=== PATIENT | female | born 1975 | race Caucasian/White ===

== ENCOUNTER 2018-05-30 20:04 | Emergency (ER) | payer OTHER, SELFPAY ==
[2018-05-30 20:12] VITALS: BP 142/66; PULSE 75; RESP 16; TEMP 36.9; O2SAT 98; BMI 21.8
--- NOTE | 2018-05-30 20:16 | DI.CT.S_ITS ---
PROCEDURE: CT HEAD/BRAIN WO CON INDICATIONS: severe R sided WALL, recent neurosurg TECHNIQUE: Noncontrast 4.5 mm thick angled axial sections acquired from the foramen magnum to the vertex, with coronal and sagittal reformats. For radiation dose reduction, the following was used: automated exposure control, adjustment of mA and/or kV according to patient size. COMPARISON: None. FINDINGS: Image quality: Excellent. CSF spaces: Basal cisterns are patent. Small low density extra-axial fluid collection noted along the left lateral margin of the left cerebellar hemisphere. Ventricles are normal in size and shape. Brain: No midline shift. No intracranial masses or hemorrhage. Jordan-white matter interface is normal. Skull and face: Postsurgical changes compatible with left occipital craniotomy noted. The visualized facial bones are intact, without suspicious lesions. Sinuses: Visualized sinuses and mastoids are clear. IMPRESSION: 1. Small extra-axial fluid collection or tracking along the lateral margin of the left cerebellar hemisphere likely related to recent surgery. 2. No acute intracranial hemorrhage. 3. Postsurgical changes. Dictated by: Juany Maria MD, PhD on 05/30/2018 at 20:57 Approved by: Juany Maria MD, PhD on 05/30/2018 at 21:02
[2018-05-30] MEDS: ACETAMINOPHEN 325 MG TABLET 650 MG PO (20:19)
[2018-05-30] MEDS: ONDANSETRON 4 MG/2 ML INJ IV (20:19)
[2018-05-30] MEDS: SODIUM CHLORIDE 0.9% 1,000 ML 150 ML IV (20:21)
[2018-05-30 20:28] LABS: Add Manual Diff / Slide Review NO; Basophils Percent Auto 0.2 % (0-2); Eosinophils Percent Auto 2.1 % (2-4); Hematocrit 37.4 % (36-46); Hemoglobin 12.7 g/dL (12.0-16.0); Lymphocytes Percent Auto 31.2 % (25-40); Mean Corpuscular Hemoglobin 31.5 PG (26-34); Mean Corpuscular Volume 92.5 fL (80-100); Monocytes Percent Auto 5.3 % (3-14); Neutrophils Absolute Auto 5400 /uL (3000-5900); Neutrophils Percent Auto 61.2 % (50-75); Platelet Count 275 X10^3/uL (150-400); Red Blood Cell Count 4.04 X10^6/uL (4.0-5.2); Red Cell Distribution Width 12.8 % (11.6-14.8); White Blood Cell Count 8.8 X10^3/uL (4.5-11.0)
--- NOTE | 2018-05-30 20:29 | ED_ITS ---
HPI - Headache General Chief Complaint: Headache Stated Complaint: HAD BRAIN SURGERY VOMITING HEAD PAIN RIGHT SIDE Time Seen by Provider: 05/30/18 20:05 Source: patient and family Mode of arrival: ambulatory Limitations: no limitations History of Present Illness HPI Narrative: 43-year-old female, nonsmoker presents with her for evaluation of a headache is rapidly worsening over the course of the day. She had a neuro vascular surgery Friday for the treatment of a facial tic. She had had a low-grade headache since the surgery, she was discharged on . Over the course of the day her headache has been worsening and became rather significant vital hour prior to arrival and caused her to vomit once. She denies neurologic symptoms such is blurred vision, trouble with speech or unilateral weakness. Surgical procedure was [place]. Headache is quite intense and on the right frontal portion of her head. It is worse with bright lights, loud noise and exertion and improves with rest and being in a dark room. MD Complaint: headache Onset (ago): hour(s) Onset description: gradual Location: right Related Data Previous Rx's Medication Instructions Recorded ondansetron 4 mg PO QID PRN #10 tab 05/30/18 prednisone 20 mg PO BID 4 Days #8 tab 05/30/18 Allergies Allergy/AdvReac Type Severity Reaction Status Date / Time No Known Drug Allergies Allergy Verified 05/30/18 20:12 Review of Systems Review of Systems All systems reviewed & are unremarkable except as noted in HPI and below Constitutional Denies chills, Denies fever(s), Reports headache(s), Denies lethargy and Denies weakness Eyes Denies change in vision, Denies eye discharge, Denies irritation and Denies loss of vision ENT Ears, Nose, Mouth, and Throat: Denies change in voice, Reports headache(s), Denies neck pain and Denies sore throat Cardiovascular Denies chest pain, Denies irregular heart rhythm, Denies lightheadedness, Denies palpitations, Denies dyspnea, Denies dyspnea on exertion and Denies orthopnea Respiratory Denies cough, Denies dyspnea, Denies dyspnea on exertion and Denies wheezing Gastrointestinal Gastrointestinal: Denies abdominal pain, Denies change in bowel habits, Denies diarrhea, Reports nausea and Reports vomiting Genitourinary Denies hematuria, Denies flank pain, Denies urinary incontinence and Denies urinary urgency Musculoskeletal Denies neck pain Integumentary/Breasts Denies pruritus, Denies erythema, Denies rash and Denies wounds Neurologic Denies confusion, Reports headache(s), Denies loss of vision and Denies weakness Psychiatric Denies anxiety, Denies confusion, Denies depression, Denies homicidal ideation and Denies suicidal ideation Endocrine Denies palpitations Hematologic/Lymphatic Denies easy bruising Allergic/Immunologic Denies wheezing PFSH Social History Smoking Status: Former smoker Exam Narrative Exam Narrative: 43-year-old female, obviously uncomfortable, eyes closed with hand rubbing right side orthodoxy Initial Vital Signs Initial Vital Signs: Vital Signs Temperature 98.4 F 05/30/18 20:12 Pulse Rate 75 05/30/18 20:12 Respiratory Rate 16 05/30/18 20:12 Blood Pressure 142/66 H 05/30/18 20:12 Pulse Oximetry 98 05/30/18 20:12 Const General: cooperative and well developed Nutritional Appearance: well nourished Orientation: alert, awake, oriented x3 and not confused HENMT Head: normocephalic, atraumatic and other (incision C/D/I) Ears: external ears normal and TM's normal bilaterally Nose: external nose normal and No nasal discharge Face and sinus: sinuses nontender, face symmetric, no sinus tenderness and No dry mucous membranes Mouth: oral mucosae normal and moist mucous membranes Teeth and gingiva: dentition normal Throat: tonsils normal and uvula midline Eyes General: appearance normal, both eyes and all related structures Eyelids: eyelids normal Conjunctivae: conjunctivae normal Sclera: sclerae normal Pupils: PERRL EOM: EOM intact bilaterally Neck Neck: normal visual inspection, full ROM and no meningeal signs Chest Chest: normal inspection of the chest Resp Effort & Inspection: normal respiratory effort, able to speak in complete sentences, no respiratory distress and no use of accessory muscles Auscultation: clear to auscultation bilaterally, no rales, no rhonchi and no wheezes Cardio Rate: regular rate Rhythm: regular rhythm Heart Sounds: no click, no gallops, no murmurs and no rubs Pulses: normal peripheral pulses GI Inspection: non-distended Palpation: soft, no hepatosplenomegaly, No guarding, No pulsatile mass and No tender Auscultation: normal bowel sounds Back/Spine/Pelvis Back: No CVA tenderness Cervical Spine: cervical ROM normal and No pain with cervical ROM Thoracic/Lumbar Spine: thoracic and lumbar spine normal to inspection Skin General: no rashes or lesions noted, No jaundice and No petechiae Extrem General: full ROM, no clubbing, cyanosis or edema, no pedal edema and no calf tenderness Course Orders Ordered: ED Orders 05/30/18 20:16 CT head/brain wo con Stat 05/30/18 20:17 Basic Metabolic Panel Stat Complete Blood Count AUTO DIFF Stat Discontinued Medications Acetaminophen (Tylenol) 650 mg PO NOW ONE Stop: 05/30/18 20:17 Last Admin: 05/30/18 20:19 Dose: 650 mg Dexamethasone (Decadron) 10 mg IV NOW ONE Stop: 05/30/18 21:30 Last Admin: 05/30/18 21:41 Dose: 10 mg Diphenhydramine HCl (Benadryl) 25 mg IV NOW ONE Stop: 05/30/18 21:30 Last Admin: 05/30/18 21:41 Dose: 25 mg Sodium Chloride (Normal Saline 0.9%) 1,000 mls @ 150 mls/hr IV BOLUS ONE Stop: 05/31/18 02:59 Last Infusion: 05/30/18 22:34 Dose: 0 mls/hr Admin: 05/30/18 20:21 Dose: 150 mls/hr Ketorolac Tromethamine (Toradol) 15 mg IV NOW ONE Stop: 05/30/18 21:30 Last Admin: 05/30/18 21:41 Dose: 15 mg Metoclopramide HCl (Reglan) 10 mg IV NOW ONE Stop: 05/30/18 21:30 Last Admin: 05/30/18 21:41 Dose: 10 mg Ondansetron HCl (Zofran) 4 mg IV Q4HR PRN PRN Reason: Nausea And Vomiting Last Admin: 05/30/18 20:19 Dose: 4 mg Reevaluation(s) Reevaluation #1: near complete resolution of symptoms after above stated therapies Consultations Consultation #1: records from [place] ordered Consultation #2: Neurosurg PA from [place] consulted, we've discussed case including history, physical, and lab/imaging findings. They suggest this is rather common and recommend treatment with typical migraine approach including steroids Vital Signs - 8 hr 05/30/18 20:12 05/30/18 21:15 05/30/18 22:00 Temperature 98.4 F Pulse Rate 75 65 70 Respiratory Rate 16 Blood Pressure 142/66 H Blood Pressure [Left Arm] 117/53 L 107/63 Pulse Oximetry 98 98 100 MDM - Headache Medical Records Attestation: I reviewed the patient's medical records. Lab Data Attestation: I reviewed the patient's lab results. Result diagrams: 05/30/18 20:17 05/30/18 20:17 Lab Results 05/30/18 05/30/18 Range/Units 20:17 20:17 WBC 8.8 (4.5-11.0) X10^3/uL RBC 4.04 (4.0-5.2) X10^6/uL Hgb 12.7 (12.0-16.0) g/dL Hct 37.4 (36-46) % MCV 92.5 (80-100) fL MCH 31.5 (26-34) PG MCHC 34.0 (30-36) % RDW 12.8 (11.6-14.8) % Plt Count 275 (150-400) X10^3/uL Neut % (Auto) 61.2 (50-75) % Lymph % (Auto) 31.2 (25-40) % Lipscomb % (Auto) 5.3 (3-14) % Eos % (Auto) 2.1 (2-4) % Baso % (Auto) 0.2 (0-2) % Neut # (Auto) 5400 (6045-3315) /uL Sodium 139 (137-145) mmol/L Potassium 3.9 (3.4-5.1) mmol/L Chloride 100 (98-107) mmol/L Carbon Dioxide 29 (22-32) mmol/L BUN 12 (7-17) mg/dL Creatinine 0.50 L (0.52-1.04) mg/dL Estimated GFR > 60.0 (>60) mL/min BUN/Creatinine Ratio 24.0 H (6-22) Glucose 111 H (70-100) mg/dL Calcium 8.7 (8.4-10.2) mg/dL Imaging Data CT scan - head: Radiologist's impression: [address] [address] [address] Scan Report Signed Patient: Jennifer Pugh [facility]#: [id number] : 1975Acct:[id number] Age/Sex: 43 / FDate of Service: 05/30/18 Loc: ED Accession Number: [id number] Procedure: CT head/brain wo con Ordering Provider: Mg Shultz D.O. PROCEDURE: CT HEAD/BRAIN WO CON INDICATIONS: severe R sided WALL, recent neurosurg TECHNIQUE: Noncontrast 4.5 mm thick angled axial sections acquired from the foramen magnum to the vertex, with coronal and sagittal reformats. For radiation dose reduction, the following was used: automated exposure control, adjustment of mA and/or kV according to patient size. COMPARISON: None. FINDINGS: Image quality: Excellent. CSF spaces: Basal cisterns are patent. Small low density extra-axial fluid collection noted along the left lateral margin of the left cerebellar hemisphere. Ventricles are normal in size and shape. Brain: No midline shift. No intracranial masses or hemorrhage. Jordan-white matter interface is normal. Skull and face: Postsurgical changes compatible with left occipital craniotomy noted. The visualized facial bones are intact, without suspicious lesions. Sinuses: Visualized sinuses and mastoids are clear. IMPRESSION: 1. Small extra-axial fluid collection or tracking along the lateral margin of the left cerebellar hemisphere likely related to recent surgery. 2. No acute intracranial hemorrhage. 3. Postsurgical changes. Dictated by: Juany Maria MD, PhD on 05/30/2018 at 20:57 Approved by: Juany Maria MD, PhD on 05/30/2018 at 21:02 [facility] Narrative Medical decision making narrative: patient with recent neurosurgical procedure presents with severe WALL, N/V. CT unremarkable. Consult with Neurosurg, suggestion that this is common sequelae. Patient felt much much better after above stated medications. Will follow up as planned. Return precautions given and patient/ understand and agree with these. Discharge Plan Departure Patient Disposition: Home Clinical Impression: Headache Discharge Date/Time: 05/30/18 22:38 Interventions: ED Discharge Assessment Last Done: 05/30/18 22:37 Instructions: DI for Headache Activity Restrictions/Additional Instructions: *You have been diagnosed with [ post surgical headache ] *What to do: *Take medications as directed *Follow up with your primary care provider in 2-3 days, call for an appointment. Let them know you were seen in the Emergency Department and that we ask that you be seen in follow up *Return to ER if you should have any new, worsening or concerning symptoms Prescriptions: New prednisone 20 mg tablet 20 mg PO BID 4 Days Qty: 8 RF: 0 ondansetron 4 mg tablet,disintegrating 4 mg PO QID PRN (Reason: nausea and vomiting) Qty: 10 RF: 0
[2018-05-30 20:51] LABS: Blood Urea Nitrogen 12 mg/dL (7-17); Calcium 8.7 mg/dL (8.4-10.2); Carbon Dioxide 29 mmol/L (22-32); Chloride 100 mmol/L (98-107); Estimated Glomerular Filt Rate > 60.0 mL/min (>60); Glucose 111 mg/dL (70-100); HEMOLYSIS 28 (0-50); Potassium 3.9 mmol/L (3.4-5.1); Sodium 139 mmol/L (137-145)
[2018-05-30 21:15] VITALS: BP 117/53; PULSE 65; O2SAT 98
[2018-05-30] MEDS: KETOROLAC 60 MG/2 ML VIAL 15 MG IV (21:41)
[2018-05-30] MEDS: DEXAMETHASONE 10 MG/ML VIAL IV (21:41)
[2018-05-30] MEDS: METOCLOPRAMIDE 10 MG/2 ML INJ IV (21:41)
[2018-05-30] MEDS: diphenhydrAMINE 50 MG/ML VIAL 25 MG IV (21:41)
[2018-05-30 22:00] VITALS: BP 107/63; PULSE 70; O2SAT 100
== END 2018-05-30 22:38 | disposition home or self-care (01) ==
PROVIDERS: Emergency Provider Emergency Medicine
DX: R51 Headache (principal); Z98.890 Other specified postprocedural states
CPT/HCPCS: 36591; 70450; 80048; 85025; 96361; 96374; 96375; 99283; 99284; J1100; J1200; J1885; J2405; J2765

== ENCOUNTER 2018-09-10 10:52 | Emergency (ER) | payer OTHER, SELFPAY ==
[2018-09-10] VITALS (11 sets, daily range): BP systolic 98–126; BP diastolic 54–76; PULSE 62–94; RESP 15–18; O2SAT 98–100; BMI 23.0
--- NOTE | 2018-09-10 11:04 | ED.GENADULT ---
HPI - General Adult General Chief complaint: Neuro Symptoms/Deficit Stated complaint: VISION/MEMORY LOSS Time Seen by Provider: 09/10/18 11:04 Source: patient and family Mode of arrival: ambulatory Limitations: no limitations History of Present Illness HPI narrative: Patient is a 43-year-old female here for evaluation of vision loss in her right eye and also problems thinking of words. Approximately 1-1.5 hours prior to arrival here in the emergency department she states she was at her normal state health at work. She states she started to notice that the peripheral vision in her right eye started out as a changes to include color change. She states that eventually moved to a point to where she could only see black out of the right side of her right eye. It appeared to be monocular. She also states that at the time she was trying to text her and could not think of how to spell the word ?vision ?. 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 Has not had any issues with that since the surgery. Upon my evaluation here in the ER the patient reports a complete resolution of all of her symptoms. She does not have a history of seizures. Related Data Home Medications Medication Instructions Recorded Confirmed Vitamin C 1 tab PO DAILY 09/10/18 09/10/18 ibuprofen 1 dose PO PRN PRN 09/10/18 09/10/18 Allergies Allergy/AdvReac Type Severity Reaction Status Date / Time No Known Drug Allergies Allergy Verified 09/10/18 11:05 Review of Systems Constitutional Denies fever(s), Denies frequent falls, Reports headache(s) and Denies weakness Eyes Denies blurry vision, Reports change in vision, Denies diplopia, Reports loss of peripheral vision and Reports loss of vision ENT Ears, Nose, Mouth, and Throat: Denies vertigo, Denies dizziness, Denies ear discharge, Reports headache(s) and Denies disequilibrium Cardiovascular Denies chest pain, Denies edema, Denies palpitations and Denies dyspnea Respiratory Denies dyspnea and Denies wheezing Gastrointestinal Gastrointestinal: Denies abdominal pain, Denies nausea and Denies vomiting Musculoskeletal Denies abnormal gait, Denies myalgias, Denies arthralgias and Denies tingling Integumentary/Breasts Denies lesions and Denies rash Neurologic Denies abnormal gait, Denies behavioral changes, Reports confusion, Denies vertigo, Denies dizziness, Denies frequent falls, Reports headache(s), Reports loss of vision, Reports memory loss, Denies convulsions, Denies seizure-like activity, Denies sensory deficit, Denies tingling, Denies paresthesias, Denies disequilibrium and Denies weakness Psychiatric Denies behavioral changes, Reports confusion and Reports memory loss Endocrine Denies palpitations Hematologic/Lymphatic Denies easy bleeding and Denies easy bruising Allergic/Immunologic Denies wheezing PFSH Medical History Healthy adult (Acute) Social History Smoking Status: Former smoker Social History Smoking Status: Former smoker Exam Initial Vital Signs Initial Vital Signs: Vital Signs Pulse Rate 71 09/10/18 11:05 Respiratory Rate 15 09/10/18 11:05 Blood Pressure 119/69 09/10/18 11:05 Pulse Oximetry 100 09/10/18 11:05 Const General: cooperative, healthy appearing, comfortable, well developed, well groomed and No acute distress Orientation: alert, awake and oriented x3 HENMT Head: normal to inspection and normocephalic Nose: external nose normal Eyes General: appearance normal, both eyes and all related structures Alignment and Position: alignment normal Eyelids: eyelids normal Conjunctivae: conjunctivae normal Pupils: PERRL EOM: EOM intact bilaterally Resp Effort & Inspection: normal respiratory effort Auscultation: clear to auscultation bilaterally Cardio Rate: regular rate Rhythm: regular rhythm Pulses: radial pulses present GI Inspection: non-distended Palpation: soft, No firm and No tender Skin Lesions: no lesions Neuro General: alert, awake and oriented x3 Cranial Nerves: CN's II-XI intact bilaterally Cognition: normal cognition Speech: speech normal Gait: normal gait Motor: muscle tone normal throughout Sensory Exam: no sensory deficits noted Coordination: iftgxb-ky-[id number] test normal and capz-ay-ltur test normal Extrem General: normal to inspection, capillary refill normal and No edema Psych Appearance: grossly normal and well kempt Scores ABCD2 Age >= 60 years: no Initial BP. Either SBP >= 140 or DBP >= 90.: no Clinical features of the TIA: other symptoms Duration of symptoms: 10-59 minutes History of diabetes: no ABCD2 Score: 1 GCS Darius coma scale eye opening: Spontaneous [place]arius coma scale verbal response: Orientated [place] coma scale motor response: Obey commands [place] coma scale total score: 15 NIH Stroke Scale Level of Conciousness: Alert, keenly responsive Ask month/age: Answers both questions correctly. Open/close eyes, close hand: Performs both tasks correctly Best gaze horizontal: Normal Visual torres: No visual loss Facial palsy: Normal symetrical movement Left arm drift: No drift for full 10 sec Right arm drift: No drift for full 10 sec Left leg drift: No drift for full 10 sec Right leg drift: No drift for full 10 sec Limb ataxia: Absent Sensory on face/arms/legs: Normal, no sensory loss Best language: No aphasia, normal Dysarthria: Normal Extinction or inattention: No abnormality Total NIH Stroke scale score: 0 Course Orders Ordered: ED Orders 09/10/18 11:15 Basic Metabolic Panel Stat Complete Blood Count AUTO DIFF Stat Partial Thromboplastin Time Stat Prothrombin Time INR Stat 09/10/18 11:16 CT head/brain wo con Stat 09/10/18 12:13 MR stroke Stat Vital Signs - 8 hr 09/10/18 11:05 09/10/18 11:45 09/10/18 11:57 Pulse Rate 71 68 62 Respiratory Rate 15 18 18 Blood Pressure 119/69 Blood Pressure [Left Arm] 103/72 103/72 Pulse Oximetry 100 100 99 09/10/18 12:05 09/10/18 12:30 09/10/18 13:08 Pulse Rate 69 67 65 Respiratory Rate 16 16 15 Blood Pressure Blood Pressure [Left Arm] 104/61 114/62 98/59 L Pulse Oximetry 100 98 98 09/10/18 13:30 09/10/18 14:00 09/10/18 14:35 Pulse Rate 65 66 80 Respiratory Rate 16 16 17 Blood Pressure Blood Pressure [Left Arm] 100/54 L 98/58 L 105/76 Pulse Oximetry 98 99 98 09/10/18 15:51 Pulse Rate 75 Respiratory Rate 18 Blood Pressure Blood Pressure [Left Arm] 115/68 Pulse Oximetry 100 Medical Decision Making Lab Data Lab results reviewed: Yes I reviewed the patient's lab results. Result diagrams: 09/10/18 11:15 09/10/18 11:15 Lab Results 09/10/18 09/10/18 09/10/18 Range/Units 11:15 11:15 11:15 WBC 6.9 (4.5-11.0) X10^3/uL RBC 3.98 L (4.0-5.2) X10^6/uL Hgb 12.6 (12.0-16.0) g/dL Hct 37.0 (36-46) % MCV 93.0 (80-100) fL MCH 31.6 (26-34) PG MCHC 34.0 (30-36) % RDW 13.0 (11.6-14.8) % Plt Count 248 (150-400) X10^3/uL Neut % (Auto) 66.4 (50-75) % Lymph % (Auto) 27.6 (25-40) % [place] % (Auto) 4.6 (3-14) % Eos % (Auto) 1.1 L (2-4) % Baso % (Auto) 0.3 (0-2) % Neut # (Auto) 4600 (3887-3963) /uL Lymph # (Auto) 1900 (9174-9126) /uL [place] # (Auto) 300 (0-900) /uL Eos # (Auto) 100 (0-450) /uL Baso # (Auto) 0 (0-100) /uL PT 11.7 (10.1-12.7) SECONDS INR 1.0 (0.9-1.3) APTT 30 (26.4-36.2) SECONDS Sodium 140 (137-145) mmol/L Potassium 3.6 (3.4-5.1) mmol/L Chloride 102 (98-107) mmol/L Carbon Dioxide 27 (22-32) mmol/L BUN 13 (7-17) mg/dL Creatinine 0.60 (0.52-1.04) mg/dL Estimated GFR > 60.0 (>60) mL/min BUN/Creatinine Ratio 21.7 (6-22) Glucose 85 (70-100) mg/dL Calcium 8.9 (8.4-10.2) mg/dL Imaging Data CT scan - head: Radiologist's impression: [address] [address] [address] Scan Report Signed Patient: Jennifer Pugh [facility]#: [id number] : 1975Acct:[id number] Age/Sex: 43 / FDate of Service: 09/10/18 Loc: ED Accession Number: [id number] Procedure: CT head/brain wo con Ordering Provider: Michael Davis D.O. PROCEDURE: CT HEAD/BRAIN WO CON INDICATIONS: Right eye vision loss and memory issues TECHNIQUE: Noncontrast 4.5 mm thick angled axial sections acquired from the foramen magnum to the vertex, with coronal and sagittal reformats. For radiation dose reduction, the following was used: automated exposure control, adjustment of mA and/or kV according to patient size. COMPARISON: [facility], CT, CT HEAD/BRAIN WO CON, 05/30/2018, 20:37. FINDINGS: Image quality: Excellent. CSF spaces: Basal cisterns are patent. No extra-axial fluid collections. Ventricles are normal in size and shape. Brain: No midline shift. No intracranial masses or hemorrhage. [place]-white matter interface is normal. Skull and face: Calvarium and visualized facial bones are intact, without suspicious lesions. Sinuses: Visualized sinuses and mastoids are clear. IMPRESSION: No acute intracranial abnormality. Dictated by: Lavelle Lebron M.D. on 09/10/2018 at 11:28 Approved by: Lavelle Lebron M.D. on 09/10/2018 at 11:29 MRI - head: Radiologist's impression: Patient: Jennifer Pugh [facility]#: [id number] : 1975Acct:[id number] Age/Sex: 43 / FDate of Service: 09/10/18 Loc: ED Accession Number: [id number] Procedure: MR stroke Ordering Provider: Michael Davis D.O. PROCEDURE: MR STROKE Pre- and post-contrast brain MRI, non-contrast brain MR angiogram, pre- and postcontrast neck MR angiogram INDICATIONS: Right sided vision loss and word-finding issues earlier today TECHNIQUE: Brain: Noncontrast axial T1 spin echo, axial T2 fast spin echo, sagittal and axial FLAIR, coronal T2 fast spin echo, axial gradient echo, axial diffusion and ADC through the brain. After the administration of contrast, axial 3D VIBE of the cranial vasculature and brain. Brain MRA: Non-contrast 3-D time of flight MR angiogram, with multiple ymmyggd-mndrrosxk-qsowcecerg (MIP) reformats performed. Neck MRA: Axial and sagittal TruFISP through the neck. Coronal dynamic MR angiogram during administration of contrast in the arterial and venous phases, with 3-dimenstional zvwktwz-tboqtitkz-mtaoxhuirx (MIP) reformats constructed from subtraction images. COMPARISON: [facility], CT, CT HEAD/BRAIN WO CON, 09/10/2018, 11:15. FINDINGS: Image quality: Excellent. BRAIN: CSF spaces: Ventricles are normal in size and shape. Basal cisterns are patent. No extra-axial fluid collections. Brain: No intracranial bleeds or mass effects. Jordan-white matter interface is normal. Diffusion weighted images show no acute ischemic insults. Brainstem appears normal. Normal intravascular flow voids are present. No abnormal intracranial enhancement. Skull and face: Calvarial marrow signal is normal. Orbits appear normal. Sinuses: Sinuses and mastoids are clear. BRAIN MR ANGIOGRAM: Anterior circulation: Intracranial internal carotid arteries are normal in size and enhancement. The flow within the paired anterior cerebral arteries is normal and symmetric. The flow within the middle cerebral arteries is normal and symmetric. The anterior communicating artery is seen. No stenoses, occlusions, or aneurysms. Posterior circulation: The visualized portions of the vertebral arteries demonstrate normal caliber, and join to form a normal appearing basilar artery. The flow within the posterior cerebral arteries is normal and symmetric. No stenoses, occlusions, or aneurysms. NECK MR ANGIOGRAM: Carotids: Great vessels demonstrate a conventional anatomy as they arise from the aortic arch. The origins of the common carotid arteries appear patent. The calibers and courses of both common carotid arteries are normal. The bifurcation regions appear normal bilaterally. The internal carotid arteries demonstrate normal course and caliber. Posterior circulation: The origins of the vertebral arteries appear patent. More superior portions of both vertebral arteries demonstrate normal course and caliber, and join to form a normal appearing basilar artery. Miscellaneous: Subclavian arteries appear patent. Pre-contrast images through the neck show no soft tissue abnormalities. IMPRESSION: BRAIN MRI: 1. No acute intracranial abnormality. No recent infarct. BRAIN MR ANGIOGRAM: Negative cerebral MR angiography. NECK MR ANGIOGRAM: 1. No internal carotid artery stenosis bilaterally. 2. Patent bilateral vertebral arteries. Dictated by: Lavelle Lebron M.D. on 09/10/2018 at 15:44 Approved by: Lavelle Lebron M.D. on 09/10/2018 at 15:47 MDM Narrative Medical decision making narrative: Patient has been asymptomatic since coming into the emergency department. Had a score was 0. CT scan the head is unremarkable. MRI of the head stroke protocol was unremarkable. Labs are unremarkable. Low suspicion for CVA. ABCD2 score of 1. Her symptoms could potentially been caused by an atypical migraine. Could also be a variant of a seizure. Will hold on further workup for now. Will have the patient contact her primary doctor to discuss further evaluation potentially by Neurology and also an EEG. Patient was given return precautions. She expressed understanding and agreement with plan. Discharge Plan Departure Patient Disposition: Home Clinical Impression: Vision changes, Dysarthria Instructions: DI for Dysarthria Activity Restrictions/Additional Instructions: I recommend you contact her primary care doctor's office for follow-up to discuss the indications for a referral to see Neurology. Return to the emergency department for any new or worsening symptoms Prescriptions: No Action ibuprofen 200 mg Tablet 1 dose PO PRN PRN (Reason: pain or headache) RF: 0 Vitamin C 1 tab PO DAILY RF: 0
--- NOTE | 2018-09-10 11:16 | DI.CT.S_ITS ---
PROCEDURE: CT HEAD/BRAIN WO CON INDICATIONS: Right eye vision loss and memory issues TECHNIQUE: Noncontrast 4.5 mm thick angled axial sections acquired from the foramen magnum to the vertex, with coronal and sagittal reformats. For radiation dose reduction, the following was used: automated exposure control, adjustment of mA and/or kV according to patient size. COMPARISON: [facility], CT, CT HEAD/BRAIN WO CON, 05/30/2018, 20:37. FINDINGS: Image quality: Excellent. CSF spaces: Basal cisterns are patent. No extra-axial fluid collections. Ventricles are normal in size and shape. Brain: No midline shift. No intracranial masses or hemorrhage. Jordan-white matter interface is normal. Skull and face: Calvarium and visualized facial bones are intact, without suspicious lesions. Sinuses: Visualized sinuses and mastoids are clear. IMPRESSION: No acute intracranial abnormality. Dictated by: Lavelle Lebron M.D. on 09/10/2018 at 11:28 Approved by: Lavelle Lebron M.D. on 09/10/2018 at 11:29
[2018-09-10 11:22] LABS: Add Manual Diff / Slide Review NO; Basophils Absolute Auto 0 /uL (0-100); Basophils Percent Auto 0.3 % (0-2); Eosinophils Absolute Auto 100 /uL (0-450); Eosinophils Percent Auto 1.1 % (2-4); Hemoglobin 12.6 g/dL (12.0-16.0); Lymphocytes Absolute Auto 1900 /uL (1100-4500); Lymphocytes Percent Auto 27.6 % (25-40); Mean Corpuscular Hemoglobin 31.6 PG (26-34); Monocytes Absolute Auto 300 /uL (0-900); Monocytes Percent Auto 4.6 % (3-14); Neutrophils Absolute Auto 4600 /uL (1500-7000); Neutrophils Percent Auto 66.4 % (50-75); Platelet Count 248 X10^3/uL (150-400); Red Blood Cell Count 3.98 X10^6/uL (4.0-5.2); White Blood Cell Count 6.9 X10^3/uL (4.5-11.0)
[2018-09-10 11:29] LABS: Prothrombin Time 11.7 SECONDS (10.1-12.7)
[2018-09-10 11:32] LABS: PTT Partial Thromboplastin Tim 30 SECONDS (26.4-36.2)
[2018-09-10 11:34] LABS: BUN Creatinine Ratio 21.7 (6-22); Blood Urea Nitrogen 13 mg/dL (7-17); Calcium 8.9 mg/dL (8.4-10.2); Carbon Dioxide 27 mmol/L (22-32); Chloride 102 mmol/L (98-107); Estimated Glomerular Filt Rate > 60.0 mL/min (>60); Glucose 85 mg/dL (70-100); HEMOLYSIS < 15 (0-50); Potassium 3.6 mmol/L (3.4-5.1); Sodium 140 mmol/L (137-145)
--- NOTE | 2018-09-10 12:13 | DI.MRI.S_ITS ---
PROCEDURE: MR STROKE Pre- and post-contrast brain MRI, non-contrast brain MR angiogram, pre- and postcontrast neck MR angiogram INDICATIONS: Right sided vision loss and word-finding issues earlier today TECHNIQUE: Brain: Noncontrast axial T1 spin echo, axial T2 fast spin echo, sagittal and axial FLAIR, coronal T2 fast spin echo, axial gradient echo, axial diffusion and ADC through the brain. After the administration of contrast, axial 3D VIBE of the cranial vasculature and brain. Brain MRA: Non-contrast 3-D time of flight MR angiogram, with multiple lfgjetf-vhjlfenjv-bumuuykwlk (MIP) reformats performed. Neck MRA: Axial and sagittal TruFISP through the neck. Coronal dynamic MR angiogram during administration of contrast in the arterial and venous phases, with 3-dimenstional getkopw-lldduksuh-otrhedtgtn (MIP) reformats constructed from subtraction images. COMPARISON: [facility], CT, CT HEAD/BRAIN WO CON, 09/10/2018, 11:15. FINDINGS: Image quality: Excellent. BRAIN: CSF spaces: Ventricles are normal in size and shape. Basal cisterns are patent. No extra-axial fluid collections. Brain: No intracranial bleeds or mass effects. Jordan-white matter interface is normal. Diffusion weighted images show no acute ischemic insults. Brainstem appears normal. Normal intravascular flow voids are present. No abnormal intracranial enhancement. Skull and face: Calvarial marrow signal is normal. Orbits appear normal. Sinuses: Sinuses and mastoids are clear. BRAIN MR ANGIOGRAM: Anterior circulation: Intracranial internal carotid arteries are normal in size and enhancement. The flow within the paired anterior cerebral arteries is normal and symmetric. The flow within the middle cerebral arteries is normal and symmetric. The anterior communicating artery is seen. No stenoses, occlusions, or aneurysms. Posterior circulation: The visualized portions of the vertebral arteries demonstrate normal caliber, and join to form a normal appearing basilar artery. The flow within the posterior cerebral arteries is normal and symmetric. No stenoses, occlusions, or aneurysms. NECK MR ANGIOGRAM: Carotids: Great vessels demonstrate a conventional anatomy as they arise from the aortic arch. The origins of the common carotid arteries appear patent. The calibers and courses of both common carotid arteries are normal. The bifurcation regions appear normal bilaterally. The internal carotid arteries demonstrate normal course and caliber. Posterior circulation: The origins of the vertebral arteries appear patent. More superior portions of both vertebral arteries demonstrate normal course and caliber, and join to form a normal appearing basilar artery. Miscellaneous: Subclavian arteries appear patent. Pre-contrast images through the neck show no soft tissue abnormalities. IMPRESSION: BRAIN MRI: 1. No acute intracranial abnormality. No recent infarct. BRAIN MR ANGIOGRAM: Negative cerebral MR angiography. NECK MR ANGIOGRAM: 1. No internal carotid artery stenosis bilaterally. 2. Patent bilateral vertebral arteries. Dictated by: Lavelle Lebron M.D. on 09/10/2018 at 15:44 Approved by: Lavelle Lebron M.D. on 09/10/2018 at 15:47
--- NOTE | 2018-09-10 12:41 | PC.NURSE ---
reports, 830 developed left eyebrow pain, took ibuprofen (3) at 930. 0900 pt reports, right eye seing jagged [place], eridescent in colors unable to see middle fo right eye to the side, along with confusion, unable to spells, with memory lost, unable to recall , co workers last name. denies fever, injuries, denies nausea or vomiting. pt reports, sinus congestion/runny for the last 3-4 days. pt schedule for mammogram on september (breast)
--- NOTE | 2018-09-10 12:47 | PC.NURSE ---
1120 denies wearing contact lens or glasses.
== END 2018-09-10 16:15 | disposition home or self-care (01) ==
PROVIDERS: Emergency Provider Emergency Medicine
DX: H53.9 Unspecified visual disturbance (principal); R47.1 Dysarthria and anarthria
CPT/HCPCS: 36591; 70450; 70553; 80048; 85025; 85610; 85730; 99284; 99291; A9579